=== PATIENT | female | born 1950 | race Caucasian/White ===

== ENCOUNTER 2023-01-31 21:53 | Inpatient (IN) | payer MEDICARE, OTHER ==
[2023-01-31] MEDS ORDERED: methylPREDNISolone SOD SUCCI 125 MG/2 ML VIAL IV STA (22:05)
[2023-01-31] MEDS ORDERED: IPRATROPIUM-ALBUTEROL 3 ML NEB INHALATION STA (22:05)
--- NOTE | 2023-01-31 22:51 | XR ---
EXAMINATION TYPE: XR chest 1V portable DATE OF EXAM: 01/31/2023 HISTORY: Shortness of breath. COMPARISON: None. TECHNIQUE: Single view of the chest is submitted. FINDINGS: Demonstrated are scattered senescent parenchymal change. Perihilar and basilar infiltrates. Correlate for pneumonia. The heart is stable. Hilar and mediastinal structures are within normal limits. Degenerative changes are seen of the dorsal spine. IMPRESSION: 1. Perihilar and basilar infiltrates. Correlate for pneumonia.
[2023-01-31 22:54] LABS: Albumin 3.6 g/dL (3.5-5.0); Calcium 9.5 mg/dL (8.4-10.2); Magnesium 1.7 mg/dL (1.6-2.3); Potassium 3.4 mmol/L (3.5-5.1); Total Bilirubin 0.6 mg/dL (0.2-1.3); Total Protein 6.2 g/dL (6.3-8.2)
[2023-01-31 22:56] LABS: Partial Thromboplastin Time 24.7 sec (22.0-30.0); Prothrombin Time 10.3 sec (9.0-12.0)
--- NOTE | 2023-01-31 23:28 | ED ---
General Adult HPI - General Chief complaint: Shortness of Breath Stated complaint: MELE Time Seen by Provider: 01/31/23 22:01 Source: patient, family, RN notes reviewed Mode of arrival: wheelchair Limitations: no limitations - History of Present Illness Initial comments: 72-year-old female presents emergency Department chief complaint of dyspnea. Patient states that she's been having increasing shortness breath over the last 4 days. Patient reports subjective fever states she has productive cough is concerned about possible pneumonia. Patient states she has underlying COPD. Patient's been having increasing wheezing on alleviated with her breathing treatments at home. Patient denies any sick contacts denies any nausea vomiting diarrhea constipation. - Related Data Allergies Allergy/AdvReac Type Severity Reaction Status Date / Time aspirin Allergy Unknown Verified 01/31/23 21:58 Iodinated Contrast Media Allergy Unknown Verified 01/31/23 21:58 shellfish derived [Shellfish] Allergy Unknown Verified 01/31/23 21:58 Sulfa (Sulfonamide Allergy Unknown Verified 01/31/23 21:58 Antibiotics) Review of Systems ROS Statement: Those systems with pertinent positive or pertinent negative responses have been documented in the HPI. ROS Other: All systems not noted in ROS Statement are negative. Past Medical History Past Medical History: Asthma, COPD Additional Past Medical History / Comment(s): 1 kidney Smoking Status: Never smoker Past Alcohol Use History: None Reported Past Drug Use History: None Reported General Exam General appearance: alert, in distress Head exam: Present: atraumatic, normocephalic, normal inspection Eye exam: Present: normal appearance, PERRL, EOMI. Absent: scleral icterus, conjunctival injection, periorbital swelling ENT exam: Present: normal exam, mucous membranes moist Neck exam: Present: normal inspection. Absent: tenderness, meningismus, lymphadenopathy Respiratory exam: Present: respiratory distress, wheezes, decreased breath sounds. Absent: normal lung sounds bilaterally, rales, rhonchi, stridor Cardiovascular Exam: Present: normal rhythm, tachycardia, normal heart sounds. Absent: systolic murmur, diastolic murmur, rubs, gallop, clicks Neurological exam: Present: alert, oriented X3 Course Vital Signs 01/31/23 01/31/23 01/31/23 21:55 22:12 22:21 Temperature 98.0 F Pulse Rate 119 H 112 H 111 H Respiratory 32 H Rate Blood Pressure 166/80 O2 Sat by Pulse 93 L Oximetry Fraction of Inspired Oxygen (FIO2) 01/31/23 01/31/23 01/31/23 22:22 22:37 22:38 Temperature Pulse Rate 111 H 121 H 113 H Respiratory 16 Rate Blood Pressure O2 Sat by Pulse 96 Oximetry Fraction of Inspired Oxygen (FIO2) 01/31/23 01/31/23 22:41 23:00 Temperature Pulse Rate 111 H Respiratory 16 Rate Blood Pressure 110/82 O2 Sat by Pulse 94 L Oximetry Fraction of 35 Inspired Oxygen (FIO2) EKG Findings - EKG Comments: EKG Findings:: EKG upon a 22:07 sinus tachycardia with short MS rate of 111 MS 116 QRS 97 QT/QTC 359/425 - EKG Results: EKG: interpreted by DAYAMI Medical Decision Making - Medical Decision Making Was pt. sent in by a medical professional or institution (, PA, PLASTIC PRINTER, urgent care, hospital, or prison...) When possible be specific @ -No Did you speak to anyone other than the patient for history (EMS, parent, family, police, friend...)? What history was obtained from this source @ -No Did you review nursing and triage notes (agree or disagree)? Why? @ -I reviewed and agree with nursing and triage notes Were old charts reviewed (outside hosp., previous admission, EMS record, old EKG, old radiological studies, urgent care reports/EKG's, prison records)? Report findings @ -No old charts were reviewed Differential Diagnosis (chest pain, altered mental status, abdominal pain women, abdominal pain men, vaginal bleeding, weakness, fever, dyspnea, syncope, headache, dizziness, GI bleed, back pain, seizure, CVA, palpatations, mental health, musculoskeletal)? @ -nDifferential Dyspnea: Coronary syndrome, arrhythmia, tamponade, asthma, COPD, pulmonary embolism, pneumonia, pneumothorax, pulmonary effusion, anaphylaxis, diabetic ketoacidosis, flailed chest, pulmonary contusion, diaphragmatic rupture, anemia, neuromuscular, this is not meant to be an all-inclusive list. EKG interpreted by me (3pts min.). @ -As above X-rays interpreted by me (1pt min.). @ -Chest x-ray shows evidence of bilateral pneumonia, COPD changes CT interpreted by me (1pt min.). @ -None done U/S interpreted by me (1pt. min.). @ -None done What testing was considered but not performed or refused? (CT, X-rays, U/S, labs)? Why? @ -None What meds were considered but not given or refused? Why? @ -None Did you discuss the management of the patient with other professionals (professionals i.e. , PA, PLASTIC PRINTER, lab, RT, psych nurse, rn social work, wig sales consultant, teacher, control officer manager, family caseworker)? Give summary @ -Admitting physician with consult to pulmonology Was smoking cessation discussed for >3mins.? @ -No Was critical care preformed (if so, how long)? @ -35 minutes of GERD care time were used initially evaluated patient, ordering labs, EKG and chest x-ray. Patient was placed on BiPAP, breathing treatments. Patient is found to have bilateral pneumonia started on antibiotics after blood cultures. Patient was admitted and case discussed with admitting physician charissa potter with consult to pulmonology Were there social determinants of health that impacted care today? How? (Homelessness, low income, unemployed, alcoholism, drug addiction, transportati on, low edu. Level, literacy, decrease access to med. care, half-way, rehab)? @ -No Was there de-escalation of care discussed even if they declined (Discuss DNR or withdrawal of care, Hospice)? DNR status @ -No What co-morbidities impacted this encounter? (DM, HTN, Smoking, COPD, CAD, Cancer, CVA, ARF, Chemo, Hep., AIDS, mental health diagnosis, sleep apnea, morbid obesity)? @ -COPD Was patient admitted / discharged? Hospital course, mention meds given and route, prescriptions, significant lab abnormalities, going to OR and other pertinent info. @ -Admitted patient was found to be acutely wrist or distress, patient has COPD exacerbation and bilateral pneumonia. Patient will be inpatient and IV antibiotics, steroids, pulmonary evaluation Undiagnosed new problem with uncertain prognosis? @ -No Drug Therapy requiring intensive monitoring for toxicity (Heparin, Nitro, Insulin, Cardizem)? @ -No Were any procedures done? @ -No Diagnosis/symptom? @ -COPD exacerbation, Acute, or Chronic, or Acute on Chronic? @ -Acute Uncomplicated (without systemic symptoms) or Complicated (systemic symptoms)? @ -Complicated Side effects of treatment? @ -No Exacerbation, Progression, or Severe Exacerbation? @ -Exacerbation Poses a threat to life or bodily function? How? (Chest pain, [place], [place], pneumonia, PE, COPD, DKA, ARF, appy, cholecystitis, CVA, Diverticulitis, Homicidal, Suicidal, threat to staff... and all critical care pts) @ -Yes patient is an acute surgical distress can lead to failure Diagnosis/symptom? @ -Bilateral pneumonia, acute respiratory distress Acute, or Chronic, or Acute on Chronic? @ -Acute Uncomplicated (without systemic symptoms) or Complicated (systemic symptoms)? @ -Calculated Side effects of treatment? @ -none Exacerbation, Progression, or Severe Exacerbation @ -no Poses a threat to life or bodily function? @ -Yes - Lab Data Result diagrams: 01/31/23 22:21 01/31/23 22:21 Lab Results 01/31/23 01/31/23 01/31/23 Range/Units 22:21 22:21 22:21 WBC 8.2 (3.8-10.6) k/uL RBC 4.19 (3.80-5.40) m/uL Hgb 12.5 (11.4-16.0) gm/dL Hct 36.6 (34.0-46.0) % MCV 87.4 (80.0-100.0) fL MCH 29.7 (25.0-35.0) pg MCHC 34.0 (31.0-37.0) g/dL RDW 14.3 (11.5-15.5) % Plt Count 244 (150-450) k/uL MPV 8.5 Neutrophils % 77 % Lymphocytes % 12 % Monocytes % 7 % Eosinophils % 2 % Basophils % 0 % Neutrophils # 6.3 (1.3-7.7) k/uL Lymphocytes # 1.0 (1.0-4.8) k/uL Monocytes # 0.6 (0-1.0) k/uL Eosinophils # 0.2 (0-0.7) k/uL Basophils # 0.0 (0-0.2) k/uL PT 10.3 (9.0-12.0) sec INR 1.0 (<1.2) APTT 24.7 (22.0-30.0) sec Sodium 137 (137-145) mmol/L Potassium 3.4 L (3.5-5.1) mmol/L Chloride 104 (98-107) mmol/L Carbon Dioxide 23 (22-30) mmol/L Anion Gap 10 mmol/L BUN 14 (7-17) mg/dL Creatinine 1.07 H (0.52-1.04) mg/dL Est GFR (CKD-EPI)AfAm 60 (>60 ml/min/1.73 sqM) Est GFR (CKD-EPI)NonAf 52 (>60 ml/min/1.73 sqM) Glucose 123 H (74-99) mg/dL Plasma Lactic Acid Glen (0.7-2.0) mmol/L Calcium 9.5 (8.4-10.2) mg/dL Magnesium 1.7 (1.6-2.3) mg/dL Total Bilirubin 0.6 (0.2-1.3) mg/dL AST 21 (14-36) U/L ALT 20 (4-34) U/L Alkaline Phosphatase 106 (38-126) U/L Troponin I (0.000-0.034) ng/mL Total Protein 6.2 L (6.3-8.2) g/dL Albumin 3.6 (3.5-5.0) g/dL Influenza Type A (PCR) (Not Detectd) Influenza Type B (PCR) (Not Detectd) RSV (PCR) (Not Detectd) SARS-CoV-2 (PCR) (Not Detectd) 01/31/23 01/31/23 01/31/23 Range/Units 22:21 22:21 22:28 WBC (3.8-10.6) k/uL RBC (3.80-5.40) m/uL Hgb (11.4-16.0) gm/dL Hct (34.0-46.0) % MCV (80.0-100.0) fL MCH (25.0-35.0) pg MCHC (31.0-37.0) g/dL RDW (11.5-15.5) % Plt Count (150-450) k/uL MPV Neutrophils % % Lymphocytes % % Monocytes % % Eosinophils % % Basophils % % Neutrophils # (1.3-7.7) k/uL Lymphocytes # (1.0-4.8) k/uL Monocytes # (0-1.0) k/uL Eosinophils # (0-0.7) k/uL Basophils # (0-0.2) k/uL PT (9.0-12.0) sec INR (<1.2) APTT (22.0-30.0) sec Sodium (137-145) mmol/L Potassium (3.5-5.1) mmol/L Chloride (98-107) mmol/L Carbon Dioxide (22-30) mmol/L Anion Gap mmol/L BUN (7-17) mg/dL Creatinine (0.52-1.04) mg/dL Est GFR (CKD-EPI)AfAm (>60 ml/min/1.73 sqM) Est GFR (CKD-EPI)NonAf (>60 ml/min/1.73 sqM) Glucose (74-99) mg/dL Plasma Lactic Acid Glen 2.0 (0.7-2.0) mmol/L Calcium (8.4-10.2) mg/dL Magnesium (1.6-2.3) mg/dL Total Bilirubin (0.2-1.3) mg/dL AST (14-36) U/L ALT (4-34) U/L Alkaline Phosphatase (38-126) U/L Troponin I <0.012 (0.000-0.034) ng/mL Total Protein (6.3-8.2) g/dL Albumin (3.5-5.0) g/dL Influenza Type A (PCR) Not Detected (Not Detectd) Influenza Type B (PCR) Not Detected (Not Detectd) RSV (PCR) Not Detected (Not Detectd) SARS-CoV-2 (PCR) Not Detected (Not Detectd) Disposition Clinical Impression: Pneumonia, COPD exacerbation, Acute respiratory distress Disposition: ADMITTED IP TO THIS [facility] Condition: Poor Referrals: Nonstaff,Physician [Primary Care Provider] - 1-2 days Time of Disposition: 00:10
[2023-01-31 23:53] LABS: Basophils % (A) 0 %; Eosinophils # (A) 0.2 k/uL (0-0.7); Eosinophils % (A) 2 %; HCT 36.6 % (34.0-46.0); HGB 12.5 gm/dL (11.4-16.0); Lymphocytes % (A) 12 %; MCH 29.7 pg (25.0-35.0); MCV 87.4 fL (80.0-100.0); Mean Platelet Volume 8.5; Monocytes # (A) 0.6 k/uL (0-1.0); Monocytes % (A) 7 %; Neutrophils # (A) 6.3 k/uL (1.3-7.7); Neutrophils % (A) 77 %; Platelet Count 244 k/uL (150-450); RBC 4.19 m/uL (3.80-5.40); RDW 14.3 % (11.5-15.5); WBC 8.2 k/uL (3.8-10.6)
[2023-02-01] MEDS ORDERED: PNEUMONIA PROTOCOL UTILIZED 1 EACH MISC PO PRN (00:03)
[2023-02-01] MEDS ORDERED: ACETAMINOPHEN TAB 325 MG TAB PO PRN (00:03)
[2023-02-01] MEDS ORDERED: AZITHROMYCIN 500 MG in SODIUM CHLORIDE 0.9% 250 ML IVPB STA ×2 (00:03→02:02)
[2023-02-01] MEDS: HYDROcodone/APAP 10-325MG 1 EACH TAB PO PRN ×2 (07:07→16:00)
[2023-02-01] MEDS: IPRATROPIUM-ALBUTEROL 3 ML NEB INHALATION SCH ×4 (08:42→21:09)
[2023-02-01] MEDS: MONTELUKAST 10 MG TAB PO SCH (09:24)
[2023-02-01] MEDS: CLOPIDOGREL 75 MG TAB PO SCH (09:24)
[2023-02-01] MEDS: LOSARTAN 50 MG TAB PO SCH (09:24)
[2023-02-01] MEDS: GABAPENTIN 300 MG CAP PO SCH ×3 (09:24→21:38)
[2023-02-01] MEDS: DULoxetine HCL 60 MG CAPSULE.DR PO SCH (09:24)
[2023-02-01] MEDS: predniSONE 20 MG TAB PO SCH (09:25)
[2023-02-01] MEDS ORDERED: FUROSEMIDE 10 MG/ML 4 ML VIAL IV STA (09:52)
--- NOTE | 2023-02-01 11:07 | P.CNPUL ---
History of Present Illness Consult date: 02/01/23 Requesting physician: Ivette Pichardo Reason for consult: dyspnea, cough, asthma, COPD, hypoxemia, pneumonia, abnormal CXR/CT Chief complaint: Shortness of breath, cough. History of present illness: Pulmonary consult dated 02/01/2023. 72-year-old female with history of chronic bronchial asthma, who typically uses Symbicort and Singulair at home, since the emergency room on January 31, complai ector of increasing shortness of breath, and cough, for 3 or 4 days prior to admission. In addition, she had an elevated temperature, and apparently was told in the emergency room, she was being admitted for an asthma exacerbation complicated by pneumonia. The patient sees a family doctor, and Tonie Rae. The patient is a lifelong nonsmoker. The patient has a history of asthma, and also has a history of having only one kidney. Currently, the patient's on 2 L of oxygen. She did use BiPAP last night, with settings of 10/5 and 40%. She's currently on Rocephin and Zithromax, along with bronchodilators and corticosteroids. White count 8.2, hemoglobin 12.5, hematocrit 36.6, and platelet count was normal. Coagulation studies are normal. Sodium 137, potassium 3.4, chlorides 104, CO2 23, BUN 14, and creatinine 1.07. N-terminal proBNP was 1350. Troponin was negative. Studies for influenza, RSV, and coronavirus were all negative. We did order a pro-calcitonin level which is not currently back. Chest x-ray appears to show some patchy bibasilar infiltrates. Review of Systems REVIEW OF SYSTEMS: CONSTITUTIONAL: Fever. NEUROLOGIC: [ Negative.] HEENT: [ Negative.] CARDIAC: [Negative.] PULMONARY: Shortness of breath, chest congestion, and cough. GI: [Negative.] : [Negative.] RHEUMATOLOGIC: [ Negative.] IMMUNOLOGIC: [ Negative.] ENDOCRINE: [Negative. ] DERMATOLOGIC: [Negative.] Past Medical History Past Medical History: Asthma, COPD, Osteoarthritis (OA), Rheumatoid Arthritis (RA) Additional Past Medical History / Comment(s): 1 [facility], [facility] told pt she has heart failure, Sinostenosis. History of Any Multi-Drug Resistant Organisms: MRSA Date of last positivie culture/infection: 2020 MDRO Source:: Nose Past Surgical History: Tonsillectomy, Tubal Ligation Additional Past Surgical History / Comment(s): Fatty tumor removed, bilat tubal ligation Past Anesthesia/Blood Transfusion Reactions: No Reported Reaction Smoking Status: Never smoker Past Alcohol Use History: None Reported Past Drug Use History: None Reported - Past Family History Mother Additional Family Medical History / Comment(s): from kidney cancer at young age Medications and Allergies Home Medications Medication Instructions Recorded Confirmed Type Budesonide/Formoterol Fumarate 2 puff INHALATION RT-BID 02/01/23 02/01/23 History [Symbicort 160-4.5 Mcg Inhaler] Clopidogrel [Plavix] 75 mg PO DAILY 02/01/23 02/01/23 History DULoxetine HCL [Cymbalta] 60 mg PO DAILY 02/01/23 02/01/23 History Gabapentin [Neurontin] 300 mg PO TID 02/01/23 02/01/23 History HYDROcodone/APAP 10-325MG [[place] 1 tab PO TID 02/01/23 02/01/23 History 10-325] Losartan Potassium [Cozaar] 50 mg PO DAILY 02/01/23 02/01/23 History Magnesium Oxide [Mag-Ox] 400 mg PO DAILY 02/01/23 02/01/23 History Montelukast Sodium [Singulair] 10 mg PO DAILY 02/01/23 02/01/23 History rOPINIRole HCL [Requip] 0.5 mg PO HS 02/01/23 02/01/23 History Allergies Allergy/AdvReac Type Severity Reaction Status Date / Time aspirin Allergy Unknown Verified 02/01/23 07:24 Iodinated Contrast Media Allergy Unknown Verified 02/01/23 07:24 shellfish derived [Shellfish] Allergy Unknown Verified 02/01/23 07:24 Sulfa (Sulfonamide Allergy Unknown Verified 02/01/23 07:24 Antibiotics) Physical Exam Osteopathic Statement: *. No significant issues noted on an osteopathic structural exam other than those noted in the History and Physical/Consult. Vitals: Vital Signs Temp Pulse Pulse Resp BP BP Pulse Ox 02/01/23 08:57 88 02/01/23 08:47 97 02/01/23 08:46 84 02/01/23 04:00 90 35 H 137/72 97 02/01/23 03:24 04/11/23 02:00 98 32 H 02/01/23 01:45 97.7 F 98 32 H 123/71 96 02/01/23 00:30 105 H 15 129/99 94 L 02/01/23 00:00 105 H 15 131/78 92 L 01/31/23 23:30 108 H 14 110/92 95 01/31/23 23:26 107 H 12 110/92 95 01/31/23 23:00 111 H 16 110/82 94 L 01/31/23 22:41 01/31/23 22:38 113 H 16 96 01/31/23 22:37 121 H 01/31/23 22:22 111 H 01/31/23 22:21 111 H 01/31/23 22:12 112 H 01/31/23 21:55 98.0 F 119 H 32 H 166/80 93 L FiO2 02/01/23 08:57 02/01/23 08:47 02/01/23 08:46 02/01/23 04:00 40 02/01/23 03:24 40 02/01/23 02:00 02/01/23 01:45 40 02/01/23 00:30 02/01/23 00:00 01/31/23 23:30 01/31/23 23:26 01/31/23 23:00 01/31/23 22:41 35 01/31/23 22:38 01/31/23 22:37 01/31/23 22:22 01/31/23 22:21 01/31/23 22:12 01/31/23 21:55 Intake and Output 01/31/23 02/01/23 02/01/23 22:59 06:59 14:59 Other: Voiding Method Diaper # Voids 0 Weight 72.121 kg 72.121 kg No acute distress, oriented 3. Currently on 3 L of oxygen. No conversational dyspnea or use of accessory muscles. HEENT examination is grossly unremarkable. Neck supple. Full range of motion. No adenopathy thyromegaly or neck vein distention. Cardiovascular examination reveals regular rhythm rate. S1-S2 normal. No S3 or S4. No discernible murmur noted. Heart rate is 88 bpm. Lungs reveal scattered bilateral inspiratory and expiratory wheezes and rhonchi. Breath sounds are coarse. No crackles. Breath sounds are equal bilaterally. Saturations are 97% on 4 L. Abdomen soft bowel sounds are heard. No masses or tenderness. Extremities are intact. No cyanosis clubbing or edema. Skin is without rash or lesion. Neurologic examination is brief but nonfocal. Results - Laboratory Findings CBC and BMP: 01/31/23 22:21 01/31/23 22:21 PT/INR, D-dimer PT 10.3 sec (9.0-12.0) 01/31/23 22: INR 1.0 (<1.2) 01/31/23 22:21 Abnormal lab findings: Abnormal Labs 01/31/23 22:21 Potassium 3.4 L Creatinine 1.07 H Glucose 123 H Total Protein 6.2 L - Diagnostic Findings Chest x-ray: image reviewed Assessment and Plan Assessment: Asthma exacerbation complicated by bibasilar pneumonia. History of hypertension. History of neuropathy. Lifelong nonsmoker. Plan: Plan dated 02/01/2023. The patient is currently on azithromycin and Rocephin. This is typical for community-acquired pneumonia. In addition, the patient was placed back on Symbicort 160/4.5, 2 puffs twice a day, and also is receiving albuterol sulfate and ipratropium bromide, 4 times a day and when necessary. The patient was also placed on prednisone 40 mg a day, Singulair 10 mg in the evening. We will continue to follow make recommendations along the way. We did order a pro-calc itonin level which is not currently back. Time with Patient: Greater than 30
[2023-02-01 11:37] VITALS: BMI 34.4
--- NOTE | 2023-02-01 12:28 | P.HPIM ---
History of Present Illness H&P Date: 02/01/23 Chief Complaint: Shortness of breath cough 72-year-old lady with past medical history significant for asthma, hypertension, peripheral neuropathy presented to the emergency department with complains of cough and shortness of breath Patient says she was having symptoms for the last 3 or 4 days and was noted to have fever, cough and productive phlegm Patient doesn't wear oxygen at home and was noted to be on 2 L at the time of presentation but had to be increased to 4 L Workup initiated in ER including a CBC, basic metabolic panel and troponin which was negative Patient tested negative for influenza RSV and coronavirus Chest x-ray showed patchy bibasilar infiltrate Continue patient on Rocephin and azithromycin pulmonary medicine consulted Review of Systems REVIEW OF SYSTEMS: Essentially negative except cough, fever, shortness of breath CONSTITUTIONAL:, no malaise, no fatigue. HEENT: No recent visual problems or hearing problems. Denied any sore throat. CARDIOVASCULAR: No chest pain, orthopnea, PND, no palpitations, no syncope. PULMONARY: Positive for cough and shortness of breath. GASTROINTESTINAL: No diarrhea, no nausea, no vomiting, no abdominal pain. NEUROLOGICAL: No headaches, no weakness, no numbness. HEMATOLOGICAL: Denies any bleeding or petechiae. GENITOURINARY: Denies any burning micturition, frequency, or urgency. MUSCULOSKELETAL/RHEUMATOLOGICAL: Denies any joint pain, swelling, or any muscle pain. ENDOCRINE: Denies any polyuria or polydipsia. Past Medical History Past Medical History: Asthma, COPD, Osteoarthritis (OA), Rheumatoid Arthritis (RA) Additional Past Medical History / Comment(s): 1 [facility] told pt she has heart failure, Sinostenosis. History of Any Multi-Drug Resistant Organisms: MRSA Date of last positivie culture/infection: 2020 MDRO Source:: Nose Past Surgical History: Tonsillectomy, Tubal Ligation Additional Past Surgical History / Comment(s): Fatty tumor removed, bilat tubal ligation Past Anesthesia/Blood Transfusion Reactions: No Reported Reaction Smoking Status: Never smoker Past Alcohol Use History: None Reported Past Drug Use History: None Reported - Past Family History Mother Additional Family Medical History / Comment(s): from kidney cancer at young age Medications and Allergies Home Medications Medication Instructions Recorded Confirmed Type Budesonide/Formoterol Fumarate 2 puff INHALATION RT-BID 04/11/23 04/11/23 History [Symbicort 160-4.5 Mcg Inhaler] Clopidogrel [Plavix] 75 mg PO DAILY 02/01/23 02/01/23 History DULoxetine HCL [Cymbalta] 60 mg PO DAILY 02/01/23 02/01/23 History Gabapentin [Neurontin] 300 mg PO TID 02/01/23 02/01/23 History HYDROcodone/APAP 10-325MG [[place] 1 tab PO TID 02/01/23 02/01/23 History 10-325] Losartan Potassium [Cozaar] 50 mg PO DAILY 02/01/23 02/01/23 History Magnesium Oxide [Mag-Ox] 400 mg PO DAILY 02/01/23 02/01/23 History Montelukast Sodium [Singulair] 10 mg PO DAILY 02/01/23 02/01/23 History rOPINIRole HCL [Requip] 0.5 mg PO HS 02/01/23 02/01/23 History Allergies Allergy/AdvReac Type Severity Reaction Status Date / Time aspirin Allergy Unknown Verified 02/01/23 07:24 Iodinated Contrast Media Allergy Unknown Verified 02/01/23 07:24 shellfish derived [Shellfish] Allergy Unknown Verified 02/01/23 07:24 Sulfa (Sulfonamide Allergy Unknown Verified 02/01/23 07:24 Antibiotics) Physical Exam Vitals: Vital Signs Temp Pulse Pulse Resp BP BP Pulse Ox 02/01/23 08:57 88 02/01/23 08:47 97 02/01/23 08:46 84 02/01/23 08:00 97.4 F L 87 24 121/58 97 02/01/23 04:00 90 35 H 137/72 97 02/01/23 03:24 02/01/23 02:00 98 32 H 02/01/23 01:45 97.7 F 98 32 H 123/71 96 02/01/23 00:30 105 H 15 129/99 94 L 02/01/23 00:00 105 H 15 131/78 92 L 01/31/23 23:30 108 H 14 110/92 95 01/31/23 23:26 107 H 12 110/92 95 01/31/23 23:00 111 H 16 110/82 94 L 01/31/23 22:41 01/31/23 22:38 113 H 16 96 01/31/23 22:37 121 H 01/31/23 22:22 111 H 01/31/23 22:21 111 H 01/31/23 22:12 112 H 01/31/23 21:55 98.0 F 119 H 32 H 166/80 93 L FiO2 02/01/23 08:57 02/01/23 08:47 02/01/23 08:46 02/01/23 08:00 02/01/23 04:00 40 02/01/23 03:24 40 02/01/23 02:00 02/01/23 01:45 40 02/01/23 00:30 02/01/23 00:00 01/31/23 23:30 01/31/23 23:26 01/31/23 23:00 01/31/23 22:41 35 01/31/23 22:38 01/31/23 22:37 01/31/23 22:22 01/31/23 22:21 01/31/23 22:12 01/31/23 21:55 Intake and Output 01/31/23 02/01/23 02/01/23 22:59 06:59 14:59 Other: Voiding Method Diaper Diaper # Voids 0 Weight 72.121 kg 72.121 kg 72.121 kg Results CBC & Chem 7: 01/31/23 22:21 01/31/23 22:21 Labs: Abnormal Lab Results - Last 24 Hours (Table) 01/31/23 Range/Units 22:21 Potassium 3.4 L (3.5-5.1) mmol/L Creatinine 1.07 H (0.52-1.04) mg/dL Glucose 123 H (74-99) mg/dL Total Protein 6.2 L (6.3-8.2) g/dL Thrombosis Risk Factor Assmnt - Choose All That Apply Any of the Below Risk Factors Present?: Yes Each Factor Represents 1 point: Abnormal pulmonary function (COPD), Obesity (BMI >25), Serious lung disease incl. pneumonia (< 1month) Other Risk Factors: Yes Each Risk Factor Represents 2 Points: Age 61-74 years, Patient confined to bed Other congenital or acquired thrombophilia - If yes, enter type in comment: No Thrombosis Risk Factor Assessment Total Risk Factor Score: 7 Thrombosis Risk Factor Assessment Level: High Risk Assessment and Plan Assessment: Assessment and plan * Community-acquired pneumonia * Acute hypoxic respiratory failure * Acute exacerbation of asthma * Hypertension * history of depression * For pneumonia continue patient on Rocephin and azithromycin, patient is a negative for covert, RSV and influenza, * Continue patient on prednisone, continue breathing treatments on Symbicort, continue Synthroid * For hypertension continue losartan * For asthma exacerbation on prednisone, breathing treatments as needed pulmonary medicine follow * CODE STATUS is full code Time with Patient: Greater than 30
[2023-02-01] MEDS: SYMBICORT 160-4.5 MCG INHALER INHALATION SCH (21:09)
[2023-02-01] MEDS: HEPARIN SODIUM,PORCINE/PF 5,000 UNIT/0.5 ML SYRINGE SQ SCH (21:38)
[2023-02-02] MEDS ORDERED: IPRATROPIUM-ALBUTEROL 3 ML NEB INHALATION STA (04:56)
[2023-02-02] MEDS: HYDROcodone/APAP 10-325MG 1 EACH TAB PO PRN ×3 (04:58→20:56)
--- NOTE | 2023-02-02 08:08 | XR ---
EXAMINATION TYPE: XR chest 2V DATE OF EXAM: 02/02/2023 6:21 AM COMPARISON: Chest radiograph from one day prior. TECHNIQUE: XR chest 2V Frontal and lateral views of the chest. CLINICAL INDICATION:Female, 72 years old with history of pneumonia; FINDINGS: Lungs/Pleura: Similar multifocal airspace opacities. No evidence of pneumothorax or pleural effusion. Pulmonary vascularity: Unremarkable. Heart/mediastinum: Cardiomediastinal silhouette is unremarkable. Musculoskeletal: No acute osseous pathology. IMPRESSION: Bibasilar airspace opacities are not significantly changed from prior.
[2023-02-02] MEDS: IPRATROPIUM-ALBUTEROL 3 ML NEB INHALATION SCH ×4 (08:34→21:41)
[2023-02-02] MEDS: SYMBICORT 160-4.5 MCG INHALER INHALATION SCH (08:34)
[2023-02-02] MEDS: CLOPIDOGREL 75 MG TAB PO SCH (09:06)
[2023-02-02] MEDS: AZITHROMYCIN 500 MG TAB PO SCH (09:06)
[2023-02-02] MEDS: GABAPENTIN 300 MG CAP PO SCH ×3 (09:06→20:56)
[2023-02-02] MEDS: MONTELUKAST 10 MG TAB PO SCH (09:06)
[2023-02-02] MEDS: predniSONE 20 MG TAB PO SCH (09:06)
[2023-02-02] MEDS: DULoxetine HCL 60 MG CAPSULE.DR PO SCH (09:06)
[2023-02-02] MEDS: LOSARTAN 50 MG TAB PO SCH (09:06)
[2023-02-02] MEDS: HEPARIN SODIUM,PORCINE/PF 5,000 UNIT/0.5 ML SYRINGE SQ SCH ×2 (09:07→20:57)
--- NOTE | 2023-02-02 11:05 | P.PN ---
Subjective Progress Note Date: 02/02/23 Principal diagnosis: Shortness of breath. Pulmonary consult dated 02/01/2023. 72-year-old female with history of chronic bronchial asthma, who typically uses Symbicort and Singulair at home, since the emergency room on January 31, complaining of increasing shortness of breath, and cough, for 3 or 4 days prior to admission. In addition, she had an elevated temperature, and apparently was told in the emergency room, she was being admitted for an asthma exacerbation complicated by pneumonia. The patient sees a family doctor, and Tonie Rae. The patient is a lifelong nonsmoker. The patient has a history of asthma, and also has a history of having only one kidney. Currently, the patient's on 2 L of oxygen. She did use BiPAP last night, with settings of 10/5 and 40%. She's currently on Rocephin and Zithromax, along with bronchodilators and corticosteroids. White count 8.2, hemoglobin 12.5, hematocrit 36.6, and platelet count was normal. Coagulation studies are normal. Sodium 137, potassium 3.4, chlorides 104, CO2 23, BUN 14, and creatinine 1.07. N-terminal proBNP was 1350. Troponin was negative. Studies for influenza, RSV, and coronavirus were all negative. We did order a pro-calcitonin level which is not currently back. Chest x-ray appears to show some patchy bibasilar infiltrates. Progress note dated 02/02/2023. 72-year-old female seen in consultation yesterday. Please see my note. She has a history of asthma, came to the hospital with complaints of increasing shortness of breath, for about 3 or 4 days prior to admission. She also had fever, and was found to have pneumonia on chest x-ray. The patient is currently on 3 L. She's not receiving any IV fluids. The patient's prednisone will be converted to Solu-Medrol. In addition, the patient's Symbicort will be changed to budesonide, and formoterol, at usual doses. The patient states that she's feeling only minimally better since admission. No new labs today. Sputum and blood sampling has been negative as far. Chest x-ray continues to show a similar pattern of pneumonia, with bibasilar infiltrates. Objective - Vital Signs Vital signs: Vital Signs Temp 96.9 F L 02/02/23 09:02 Pulse 96 02/02/23 09:02 Resp 20 02/02/23 09:02 BP 122/66 02/02/23 09:02 Pulse Ox 96 02/02/23 09:02 FiO2 40 02/01/23 04:00 Intake & Output 02/01/23 02/02/23 02/02/23 18:59 06:59 18:59 Intake Total 118 Output Total 500 650 200 Balance -500 -650 -82 Weight 72.121 kg 73 kg Intake: Oral 118 Output: Urine 500 650 200 Stool 0 Other: Voiding Method Diaper External Catheter External Catheter # Voids 1 - Exam No acute distress, oriented 3. Currently on 3 L of oxygen. No conversational dyspnea or use of accessory muscles. HEENT examination is grossly unremarkable. Neck supple. Full range of motion. No adenopathy thyromegaly or neck vein distention. Cardiovascular examination reveals regular rhythm rate. S1-S2 normal. No S3 or S4. No discernible murmur noted. Heart rate is 96 bpm. Lungs reveal scattered bilateral inspiratory and expiratory wheezes and rhonchi. Breath sounds are coarse. No crackles. Breath sounds are equal bilaterally. Saturations are 96 % on 3 L. Abdomen soft bowel sounds are heard. No masses or tenderness. Extremities are intact. No cyanosis clubbing or edema. Skin is without rash or lesion. Neurologic examination is brief but nonfocal. - Labs CBC & Chem 7: 01/31/23 22:21 01/31/23 22:21 Labs: Abnormal Lab Results - Last 24 Hours (Table) 02/01/23 Range/Units 10:28 Procalcitonin 1.17 H (0.02-0.09) ng/mL Microbiology - Last 24 Hours (Table) 02/01/23 21:15 Gram Stain - Preliminary Sputum Sputum Culture - Preliminary 02/01/23 00:58 Blood Culture - Preliminary Blood No Growth after 24 hours 02/01/23 00:58 Blood Culture - Preliminary Blood No Growth after 24 hours Assessment and Plan Assessment: Asthma exacerbation complicated by bibasilar pneumonia. History of hypertension. History of neuropathy. Lifelong nonsmoker. Plan: Plan dated 02/01/2023. The patient is currently on azithromycin and Rocephin. This is typical for community-acquired pneumonia. In addition, the patient was placed back on Symbicort 160/4.5, 2 puffs twice a day, and also is receiving albuterol sulfate and ipratropium bromide, 4 times a day and when necessary. The patient was also placed on prednisone 40 mg a day, Singulair 10 mg in the evening. We will continue to follow make recommendations along the way. We did order a pro- calcitonin level which is not currently back. Plan dated 02/02/2023. The patient remains on 3 L of oxygen. She's not receiving any IV fluids. In an attempt to improve her situation more quickly, the prednisone is discontinued, in favor of Solu-Medrol. In addition, Symbicort is discontinued in favor of budesonide 1 mg, mixed with formoterol 20 g, twice a day. Continue to follow make recommendations along the way. Labs, x-rays, medications are reviewed. Prognosis is certainly guarded. Time with Patient: Less than 30
[2023-02-02 12:03] LABS: African American GFR (CKD) >90 (>60 ml/min/1.73 sqM); Anion Gap 10 mmol/L; Blood Urea Nitrogen 20 mg/dL (7-17); Calcium 8.9 mg/dL (8.4-10.2); Carbon Dioxide 26 mmol/L (22-30); Chloride 103 mmol/L (98-107); Glucose 115 mg/dL (74-99); Non-African American GFR(CKD) 80 (>60 ml/min/1.73 sqM); Potassium 3.5 mmol/L (3.5-5.1); Sodium 139 mmol/L (137-145)
[2023-02-02 12:17] LABS: C Reactive Protein 19.8 mg/dL (<1.0)
--- NOTE | 2023-02-02 12:41 | P.PN ---
Subjective Progress Note Date: 02/02/23 Principal diagnosis: Shortness of breath, cough Interval history: 72-year-old lady with past medical history significant for asthma, hypertension, peripheral neuropathy presented to the emergency department with complains of cough and shortness of breath Patient says she was having symptoms for the last 3 or 4 days and was noted to have fever, cough and productive phlegmPatient doesn't wear oxygen at home and was noted to be on 2 L at the time of presentation but had to be increased to 4 L Workup initiated in ER including a CBC, basic metabolic panel and troponin which was negative Patient tested negative for influenza RSV and coronavirusChest x-ray showed patchy bibasilar infiltrate. Pulmonary medicine consulted SUBJECTIVE : Patient seen and evaluated bedside, does complain of cough, congestion, sputum production REVIEW OF SYSTEMS: Essentially negative except cough, fever, shortness of breath improved CONSTITUTIONAL:, no malaise, no fatigue. HEENT: No recent visual problems or hearing problems. Denied any sore throat. CARDIOVASCULAR: No chest pain, orthopnea, PND, no palpitations, no syncope. PULMONARY: Positive for cough and shortness of breath. GASTROINTESTINAL: No diarrhea, no nausea, no vomiting, no abdominal pain. NEUROLOGICAL: No headaches, no weakness, no numbness. HEMATOLOGICAL: Denies any bleeding or petechiae. GENITOURINARY: Denies any burning micturition, frequency, or urgency. MUSCULOSKELETAL/RHEUMATOLOGICAL: Denies any joint pain, swelling, or any muscle pain. ENDOCRINE: Denies any polyuria or polydipsia. PHYSICAL EXAMINATION: Vitals reviewed GENERAL: The patient is alert and oriented x3, not in any acute distress. Well developed, well nourished. HEENT: Pupils are round and equally reacting to light. EOMI. No scleral icterus. No conjunctival pallor. Normocephalic, atraumatic. No pharyngeal erythema. No thyromegaly. CARDIOVASCULAR: S1 and S2 present. No murmurs, rubs, or gallops. PULMONARY: Chest is clear to auscultation, no wheezing or crackles. ABDOMEN: Soft, nontender, nondistended, normoactive bowel sounds. No palpable organomegaly. MUSCULOSKELETAL: No joint swelling or deformity. EXTREMITIES: No cyanosis, clubbing, or pedal edema. NEUROLOGICAL: Gross neurological examination did not reveal any focal deficits. SKIN: No rashes. ASSESMENT & PLAN * Community-acquired pneumonia * Acute hypoxic respiratory failure on 3 L of oxygen , none at baseline * Acute exacerbation of asthma * Hypertension * history of depression * For pneumonia continue patient on Rocephin and azithromycin, patient is a negative for Covid , RSV and influenza, * Continue patient on IV Solu-Medrol, continue breathing treatments on Symbicort, continue Synthroid * For hypertension continue losartan * For asthma exacerbation on IV Solumedrol , breathing treatments as needed pulmonary medicine follow * CODE STATUS is full code Objective - Vital Signs Vital signs: Vital Signs Temp 97.3 F L 02/02/23 12:00 Pulse 85 02/02/23 12:30 Resp 15 02/02/23 12:30 BP 129/75 02/02/23 12:00 Pulse Ox 93 L 02/02/23 12:00 FiO2 40 02/01/23 04:00 Intake & Output 02/01/23 02/02/23 02/02/23 18:59 06:59 18:59 Intake Total 118 Output Total 500 650 200 Balance -500 -650 -82 Weight 72.121 kg 73 kg Intake: Oral 118 Output: Urine 500 650 200 Stool 0 Other: Voiding Method Diaper External Catheter External Catheter # Voids 1 - Labs CBC & Chem 7: 01/31/23 22:21 02/02/23 11:03 Labs: Abnormal Lab Results - Last 24 Hours (Table) 02/01/23 02/02/23 Range/Units 10:28 11:03 BUN 20 H (7-17) mg/dL Glucose 115 H (74-99) mg/dL C-Reactive Protein 19.8 H (<1.0) mg/dL Procalcitonin 1.17 H (0.02-0.09) ng/mL Microbiology - Last 24 Hours (Table) 02/01/23 21:15 Gram Stain - Preliminary Sputum Sputum Culture - Preliminary 02/01/23 00:58 Blood Culture - Preliminary Blood No Growth after 24 hours 02/01/23 00:58 Blood Culture - Preliminary Blood No Growth after 24 hours
[2023-02-02] MEDS: methylPREDNISolone SOD SUCCI 125 MG/2 ML VIAL IV SCH ×3 (13:04→23:31)
[2023-02-02] MEDS: guaiFENesin 600 MG TABLET.ER PO SCH ×2 (13:04→20:56)
[2023-02-02] MEDS ORDERED: bisacodyL 5 MG TABLET.DR PO PRN (18:55)
[2023-02-02] MEDS: FORMOTEROL FUMARATE 20 MCG/2 ML NEBU INHALATION SCH (21:41)
[2023-02-02] MEDS: BUDESONIDE 1 MG/2 ML NEBU INHALATION SCH (21:41)
[2023-02-03] MEDS: HYDROcodone/APAP 10-325MG 1 EACH TAB PO PRN ×3 (04:56→20:42)
[2023-02-03] MEDS: methylPREDNISolone SOD SUCCI 125 MG/2 ML VIAL IV SCH ×4 (04:57→22:56)
[2023-02-03] MEDS: AZITHROMYCIN 500 MG TAB PO SCH (08:24)
[2023-02-03] MEDS: CLOPIDOGREL 75 MG TAB PO SCH (08:24)
[2023-02-03] MEDS: HEPARIN SODIUM,PORCINE/PF 5,000 UNIT/0.5 ML SYRINGE SQ SCH ×2 (08:25→20:43)
[2023-02-03] MEDS: GABAPENTIN 300 MG CAP PO SCH ×3 (08:25→22:05)
[2023-02-03] MEDS: LOSARTAN 50 MG TAB PO SCH (08:25)
[2023-02-03] MEDS: MONTELUKAST 10 MG TAB PO SCH (08:25)
[2023-02-03] MEDS: guaiFENesin 600 MG TABLET.ER PO SCH ×2 (08:25→20:42)
[2023-02-03] MEDS: DULoxetine HCL 60 MG CAPSULE.DR PO SCH (08:25)
[2023-02-03] MEDS: FORMOTEROL FUMARATE 20 MCG/2 ML NEBU INHALATION SCH ×2 (09:56→22:11)
[2023-02-03] MEDS: IPRATROPIUM-ALBUTEROL 3 ML NEB INHALATION SCH ×4 (09:56→22:11)
[2023-02-03] MEDS: BUDESONIDE 1 MG/2 ML NEBU INHALATION SCH ×2 (09:56→22:11)
--- NOTE | 2023-02-03 10:08 | P.PN ---
Subjective Progress Note Date: 02/03/23 Principal diagnosis: Shortness of breath. Pulmonary consult dated 02/01/2023. 72-year-old female with history of chronic bronchial asthma, who typically uses Symbicort and Singulair at home, since the emergency room on January 31, complaining of increasing shortness of breath, and cough, for 3 or 4 days prior to admission. In addition, she had an elevated temperature, and apparently was told in the emergency room, she was being admitted for an asthma exacerbation complicated by pneumonia. The patient sees a family doctor, and Tonie Rae. The patient is a lifelong nonsmoker. The patient has a history of asthma, and also has a history of having only one kidney. Currently, the patient's on 2 L of oxygen. She did use BiPAP last night, with settings of 10/5 and 40%. She's currently on Rocephin and Zithromax, along with bronchodilators and corticosteroids. White count 8.2, hemoglobin 12.5, hematocrit 36.6, and platelet count was normal. Coagulation studies are normal. Sodium 137, potassium 3.4, chlorides 104, CO2 23, BUN 14, and creatinine 1.07. N-terminal proBNP was 1350. Troponin was negative. Studies for influenza, RSV, and coronavirus were all negative. We did order a pro-calcitonin level which is not currently back. Chest x-ray appears to show some patchy bibasilar infiltrates. Progress note dated 02/02/2023. 72-year-old female seen in consultation yesterday. Please see my note. She has a history of asthma, came to the hospital with complaints of increasing shortness of breath, for about 3 or 4 days prior to admission. She also had fever, and was found to have pneumonia on chest x-ray. The patient is currently on 3 L. She's not receiving any IV fluids. The patient's prednisone will be converted to Solu-Medrol. In addition, the patient's Symbicort will be changed to budesonide, and formoterol, at usual doses. The patient states that she's feeling only minimally better since admission. No new labs today. Sputum and blood sampling has been negative as far. Chest x-ray continues to show a similar pattern of pneumonia, with bibasilar infiltrates. Progress note dated 02/03/2023. 72-year-old female seen today in room 362. Currently, the patient's on 3 L of oxygen. She's not receiving any IV fluids. She appears to be doing better, and admits that she's feeling better. No new laboratory data to report. Chest x- ray from yesterday, was ready reviewed. The patient continues on the Pulmicort, Rocephin, formoterol, Mucinex, albuterol sulfate, and ipratropium bromide, and Solu-Medrol. Objective - Vital Signs Vital signs: Vital Signs Temp 97.4 F L 02/03/23 07:12 Pulse 92 02/03/23 09:56 Resp 18 02/03/23 09:54 BP 135/73 02/03/23 07:12 Pulse Ox 94 L 02/03/23 07:12 FiO2 40 02/01/23 04:00 Intake & Output 02/02/23 02/03/23 02/03/23 18:59 06:59 18:59 Intake Total 354 120 Output Total 300 400 Balance 54 -400 120 Weight 76.5 kg Intake: Oral 354 120 Output: Urine 300 400 Stool 0 Other: Voiding Method External Catheter External Catheter # Bowel Movements 0 - Exam No acute distress, oriented 3. Currently on 3 L of oxygen. No conversational dyspnea or use of accessory muscles. HEENT examination is grossly unremarkable. Neck supple. Full range of motion. No adenopathy thyromegaly or neck vein distention. Cardiovascular examination reveals regular rhythm rate. S1-S2 normal. No S3 or S4. No discernible murmur noted. Heart rate is 92 bpm. Lungs reveal scattered bilateral inspiratory and expiratory wheezes and rhonchi. Breath sounds are coarse. No crackles. Breath sounds are equal bilaterally. Saturations are 94 % on 3 L. Breath sounds are improved. Abdomen soft bowel sounds are heard. No masses or tenderness. Extremities are intact. No cyanosis clubbing or edema. Skin is without rash or lesion. Neurologic examination is brief but nonfocal. - Labs CBC & Chem 7: 01/31/23 22:21 02/02/23 11:03 Labs: Abnormal Lab Results - Last 24 Hours (Table) 02/02/23 Range/Units 11:03 BUN 20 H (7-17) mg/dL Glucose 115 H (74-99) mg/dL C-Reactive Protein 19.8 H (<1.0) mg/dL Microbiology - Last 24 Hours (Table) 02/01/23 00:58 Blood Culture - Preliminary Blood No Growth after 48 hours 02/01/23 00:58 Blood Culture - Preliminary Blood No Growth after 48 hours 02/01/23 21:15 Gram Stain - Preliminary Sputum Sputum Culture - Preliminary Assessment and Plan Assessment: Asthma exacerbation complicated by bibasilar pneumonia. History of hypertension. History of neuropathy. Lifelong nonsmoker. Plan: Plan dated 02/01/2023. The patient is currently on azithromycin and Rocephin. This is typical for community-acquired pneumonia. In addition, the patient was placed back on Symbicort 160/4.5, 2 puffs twice a day, and also is receiving albuterol sulfate and ipratropium bromide, 4 times a day and when necessary. The patient was also placed on prednisone 40 mg a day, Singulair 10 mg in the evening. We will continue to follow make recommendations along the way. We did order a pro- calcitonin level which is not currently back. Plan dated 02/02/2023. The patient remains on 3 L of oxygen. She's not receiving any IV fluids. In an attempt to improve her situation more quickly, the prednisone is discontinued, in favor of Solu-Medrol. In addition, Symbicort is discontinued in favor of budesonide 1 mg, mixed with formoterol 20 g, twice a day. Continue to follow make recommendations along the way. Labs, x-rays, medications are reviewed. Prognosis is certainly guarded. Plan dated 02/03/2023. The patient remains on 3 L. The patient is not receiving any IV fluids. Clinically, the patient appears to be improved. She states that she's feeling better. Hopeful discharge within the next 24-48 hours. We will continue to follow the patient and make additions along the way. Labs, x-rays, and medications are all reviewed. Prognosis is guarded. Time with Patient: Less than 30
[2023-02-03 11:34] LABS: HCT 36.8 % (34.0-46.0); HGB 11.5 gm/dL (11.4-16.0); MCH 28.5 pg (25.0-35.0); MCHC 31.2 g/dL (31.0-37.0); MCV 91.2 fL (80.0-100.0); Mean Platelet Volume 7.7; Platelet Count 367 k/uL (150-450); Poikilocytosis Slight; RBC 4.03 m/uL (3.80-5.40); RDW 13.9 % (11.5-15.5); WBC 11.3 k/uL (3.8-10.6)
[2023-02-03 11:51] LABS: African American GFR (CKD) >90 (>60 ml/min/1.73 sqM); Anion Gap 8 mmol/L; Blood Urea Nitrogen 24 mg/dL (7-17); C Reactive Protein 7.7 mg/dL (<1.0); Calcium 9.3 mg/dL (8.4-10.2); Carbon Dioxide 25 mmol/L (22-30); Chloride 103 mmol/L (98-107); Glucose 132 mg/dL (74-99); Non-African American GFR(CKD) 87 (>60 ml/min/1.73 sqM); Potassium 4.3 mmol/L (3.5-5.1); Sodium 136 mmol/L (137-145)
[2023-02-03] MEDS ORDERED: DEXTROSE 50% SYRINGE 50 ML IVP PRN ×2 (12:11)
[2023-02-03 12:14] LABS: Glucose,Whole Blood 107 mg/dL (70-110)
--- NOTE | 2023-02-03 13:10 | P.PN ---
Subjective Progress Note Date: 02/03/23 72-year-old lady with past medical history significant for asthma, hypertension, peripheral neuropathy presented to the emergency department with complains of cough and shortness of breath Patient says she was having symptoms for the last 3 or 4 days and was noted to have fever, cough and productive phlegmPatient doesn't wear oxygen at home and was noted to be on 2 L at the time of presentation but had to be increased to 4 L Workup initiated in ER including a CBC, basic metabolic panel and troponin whi ch was negative Patient tested negative for influenza RSV and coronavirusChest x-ray showed patchy bibasilar infiltrate. Pulmonary medicine consulted 02/03. Patient seen and examined. Currently on 3 L of oxygen. States she feels better, still coughing up phlegm REVIEW OF SYSTEMS: CONSTITUTIONAL: No fever, no malaise,. CARDIOVASCULAR: No chest pain, no palpitations, no syncope. PULMONARY: As mentioned in HPI GASTROINTESTINAL: No diarrhea, no nausea, no vomiting, no abdominal pain. NEUROLOGICAL: No headaches, no weakness, PHYSICAL EXAMINATION: GENERAL: The patient is alert and oriented x3, not in any acute distress. Well developed, well nourished. HEENT: Pupils are round and equally reacting to light. EOMI. No scleral icterus. No conjunctival pallor. Normocephalic, atraumatic. No pharyngeal erythema. No thyromegaly. CARDIOVASCULAR: S1 and S2 present. No murmurs, rubs, or gallops. PULMONARY: Chest is clear to auscultation, no wheezing or crackles. ABDOMEN: Soft, nontender, nondistended, normoactive bowel sounds. No palpable organomegaly. MUSCULOSKELETAL: No joint swelling or deformity. EXTREMITIES: No cyanosis, clubbing, or pedal edema. NEUROLOGICAL: Gross neurological examination did not reveal any focal deficits. SKIN: No rashes. Assessment and plan * Bacterial pneumonia * Acute hypoxic respiratory failure on 3 L of oxygen , none at baseline * Acute exacerbation of asthma * Hypertension * history of depression Plan; * Monitor vital signs * Monitor CBC * Monitor CMP * Continue telemetry monitoring * Continue Rocephin and azithromycin, patient is a negative for Covid , RSV and influenza, * Continue patient on IV Solu-Medrol, * continue breathing treatments on Symbicort, * continue Synthroid * continue losartan * Pulmonology following Objective - Vital Signs Vital signs: Vital Signs Temp 97.4 F L 02/03/23 07:12 Pulse 90 02/03/23 07:12 Resp 16 02/03/23 07:12 BP 135/73 02/03/23 07:12 Pulse Ox 94 L 02/03/23 07:12 FiO2 40 02/01/23 04:00 Intake & Output 02/02/23 02/03/23 02/03/23 18:59 06:59 18:59 Intake Total 354 120 Output Total 300 400 Balance 54 -400 120 Weight 76.5 kg Intake: Oral 354 120 Output: Urine 300 400 Stool 0 Other: Voiding Method External Catheter External Catheter # Bowel Movements 0 - Labs CBC & Chem 7: 02/03/23 10:43 02/03/23 10:43 Labs: Abnormal Lab Results - Last 24 Hours (Table) 02/02/23 Range/Units 11:03 BUN 20 H (7-17) mg/dL Glucose 115 H (74-99) mg/dL C-Reactive Protein 19.8 H (<1.0) mg/dL Microbiology - Last 24 Hours (Table) 02/01/23 00:58 Blood Culture - Preliminary Blood No Growth after 48 hours 02/01/23 00:58 Blood Culture - Preliminary Blood No Growth after 48 hours 02/01/23 21:15 Gram Stain - Preliminary Sputum Sputum Culture - Preliminary
[2023-02-03] MEDS: INSULIN ASPART (NovoLOG) 100 UNIT/ML VIAL SQ SCH ×3 (13:17→20:43)
[2023-02-03 16:52] LABS: Glucose,Whole Blood 226 mg/dL (70-110)
[2023-02-03 19:54] LABS: Glucose,Whole Blood 178 mg/dL (70-110)
[2023-02-03] MEDS ORDERED: MELATONIN 3 MG TABLET PO PRN (20:23)
[2023-02-04] MEDS: methylPREDNISolone SOD SUCCI 125 MG/2 ML VIAL IV SCH ×2 (05:54→11:42)
[2023-02-04] MEDS: HYDROcodone/APAP 10-325MG 1 EACH TAB PO PRN (05:54)
[2023-02-04 06:13] LABS: Glucose,Whole Blood 125 mg/dL (70-110)
[2023-02-04] MEDS: INSULIN ASPART (NovoLOG) 100 UNIT/ML VIAL SQ SCH ×2 (06:20→11:42)
[2023-02-04] MEDS: MONTELUKAST 10 MG TAB PO SCH (08:17)
[2023-02-04] MEDS: CLOPIDOGREL 75 MG TAB PO SCH (08:17)
[2023-02-04] MEDS: guaiFENesin 600 MG TABLET.ER PO SCH (08:17)
[2023-02-04] MEDS: DULoxetine HCL 60 MG CAPSULE.DR PO SCH (08:17)
[2023-02-04] MEDS: LOSARTAN 50 MG TAB PO SCH (08:17)
[2023-02-04] MEDS: GABAPENTIN 300 MG CAP PO SCH (08:17)
[2023-02-04] MEDS: HEPARIN SODIUM,PORCINE/PF 5,000 UNIT/0.5 ML SYRINGE SQ SCH (08:17)
[2023-02-04 08:30] LABS: Basophils # (A) 0.1 k/uL (0-0.2); Basophils % (A) 1 %; Eosinophils % (A) 0 %; HCT 36.9 % (34.0-46.0); HGB 11.6 gm/dL (11.4-16.0); Lymphocytes # (A) 1.4 k/uL (1.0-4.8); Lymphocytes % (A) 13 %; MCH 28.8 pg (25.0-35.0); MCHC 31.5 g/dL (31.0-37.0); MCV 91.3 fL (80.0-100.0); Mean Platelet Volume 7.2; Monocytes # (A) 0.4 k/uL (0-1.0); Monocytes % (A) 4 %; Neutrophils # (A) 9.3 k/uL (1.3-7.7); Neutrophils % (A) 82 %; Platelet Count 376 k/uL (150-450); RBC 4.04 m/uL (3.80-5.40); RDW 13.7 % (11.5-15.5); WBC 11.3 k/uL (3.8-10.6)
[2023-02-04 08:56] LABS: AST 28 U/L (14-36); African American GFR (CKD) >90 (>60 ml/min/1.73 sqM); Albumin 3.4 g/dL (3.5-5.0); Anion Gap 9 mmol/L; Blood Urea Nitrogen 25 mg/dL (7-17); Calcium 8.8 mg/dL (8.4-10.2); Carbon Dioxide 24 mmol/L (22-30); Chloride 102 mmol/L (98-107); Glucose 173 mg/dL (74-99); Non-African American GFR(CKD) 86 (>60 ml/min/1.73 sqM); Sodium 135 mmol/L (137-145); Total Bilirubin 0.3 mg/dL (0.2-1.3)
[2023-02-04 09:01] LABS: ALT 31 U/L (4-34); Alkaline Phosphatase 92 U/L (38-126); Potassium 4.2 mmol/L (3.5-5.1)
[2023-02-04] MEDS: BUDESONIDE 1 MG/2 ML NEBU INHALATION SCH (09:34)
[2023-02-04] MEDS: FORMOTEROL FUMARATE 20 MCG/2 ML NEBU INHALATION SCH (09:34)
[2023-02-04] MEDS: IPRATROPIUM-ALBUTEROL 3 ML NEB INHALATION SCH ×2 (09:34→12:35)
[2023-02-04 11:39] LABS: Glucose,Whole Blood 137 mg/dL (70-110)
[2023-02-04 12:12] VITALS: BP 156/98; PULSE 98; RESP 16; TEMP 97.7
--- NOTE | 2023-02-04 12:32 | P.DS ---
Providers Date of admission: 02/01/23 00:10 Expected date of discharge: 02/04/23 Attending physician: Ivette Pichardo Consults: 02/01/23 00:03 Consult Physician Routine Consulting Provider: Ranjith Preciado Consult Reason/Comments: copd Do you want consulting provider notified?: Yes Primary care physician: Physician Nonstaff Hospital Course: Discharge diagnoses; * Bacterial pneumonia * Acute hypoxic respiratory failure on 3 L of oxygen , none at baseline * Acute exacerbation of asthma * Hypertension * history of depression Hospital course; 72-year-old lady with past medical history significant for asthma, hypertension, peripheral neuropathy presented to the emergency department with complains of cough and shortness of breath Patient says she was having symptoms for the last 3 or 4 days and was noted to have fever, cough and productive phlegmPatient doesn't wear oxygen at home and was noted to be on 2 L at the time of presentation but had to be increased to 4 L Workup initiated in ER including a CBC, basic metabolic panel and troponin which was negative Patient tested negative for influenza RSV and coronavirusChest x-ray showed patchy bibasilar infiltrate. Pulmonary medicine consulted 02/03. Patient seen and examined. Currently on 3 L of oxygen. States she feels better, still coughing up phlegm 02/04. Patient seen and examined. White count is 11.3, hemoglobin 11.6, sodium 135, potassium 4.2. Patient has been weaned off the oxygen, Patient walking resting pulse ox done, not requiring oxygen at this time. Being transitioned to oral Ceftin at discharge and tapering Dose of prednisone. Outpatient follow-up with pulmonary PHYSICAL EXAMINATION: GENERAL: The patient is alert and oriented x3, not in any acute distress. Well developed, well nourished. HEENT: Pupils are round and equally reacting to light. EOMI. No scleral icterus. No conjunctival pallor. Normocephalic, atraumatic. No pharyngeal erythema. No thyromegaly. CARDIOVASCULAR: S1 and S2 present. No murmurs, rubs, or gallops. PULMONARY: Chest is clear to auscultation, no wheezing or crackles. ABDOMEN: Soft, nontender, nondistended, normoactive bowel sounds. No palpable organomegaly. MUSCULOSKELETAL: No joint swelling or deformity. EXTREMITIES: No cyanosis, clubbing, or pedal edema. NEUROLOGICAL: Gross neurological examination did not reveal any focal deficits. SKIN: No rashes. Patient Condition at Discharge: Poor Plan - Discharge Summary Discharge Rx Participant: No New Discharge Prescriptions: New cefUROXime axetiL [Cefuroxime] 500 mg PO BID #4 tab predniSONE 10 mg PO DAILY #20 tab Continue Magnesium Oxide [Mag-Ox] 400 mg PO DAILY HYDROcodone/APAP 10-325MG [[place] 10-325] 1 tab PO TID Clopidogrel [Plavix] 75 mg PO DAILY Budesonide/Formoterol Fumarate [Symbicort 160-4.5 Mcg Inhaler] 2 puff INHALATION RT-BID Losartan Potassium [Cozaar] 50 mg PO DAILY rOPINIRole HCL [Requip] 0.5 mg PO HS Montelukast Sodium [Singulair] 10 mg PO DAILY Gabapentin [Neurontin] 300 mg PO TID DULoxetine HCL [Cymbalta] 60 mg PO DAILY Discharge Medication List Budesonide/Formoterol Fumarate [Symbicort 160-4.5 Mcg Inhaler] 2 puff INHALATION RT-BID 02/01/23 [History] Clopidogrel [Plavix] 75 mg PO DAILY 02/01/23 [History] DULoxetine HCL [Cymbalta] 60 mg PO DAILY 02/01/23 [History] Gabapentin [Neurontin] 300 mg PO TID 02/01/23 [History] HYDROcodone/APAP 10-325MG [[place] 10-325] 1 tab PO TID 02/01/23 [History] Losartan Potassium [Cozaar] 50 mg PO DAILY 02/01/23 [History] Magnesium Oxide [Mag-Ox] 400 mg PO DAILY 02/01/23 [History] Montelukast Sodium [Singulair] 10 mg PO DAILY 02/01/23 [History] rOPINIRole HCL [Requip] 0.5 mg PO HS 02/01/23 [History] cefUROXime axetiL [Cefuroxime] 500 mg PO BID #4 tab 02/04/23 [Rx] predniSONE 10 mg PO DAILY #20 tab 02/04/23 [Rx] Follow up Appointment(s)/Referral(s): Ranjith Preciado DO [Doctor of Osteopathic Medicine] - 02/16/23 1:15 pm Nonstaff,Physician [Primary Care Provider] - 1-2 days Discharge/Stand Alone Forms: Area PCPs
--- NOTE | 2023-02-04 12:40 | P.PN ---
Subjective Progress Note Date: 02/04/23 Principal diagnosis: Shortness of breath. Pulmonary consult dated 02/01/2023. 72-year-old female with history of chronic bronchial asthma, who typically uses Symbicort and Singulair at home, since the emergency room on January 31, complaining of increasing shortness of breath, and cough, for 3 or 4 days prior to admission. In addition, she had an elevated temperature, and apparently was told in the emergency room, she was being admitted for an asthma exacerbation complicated by pneumonia. The patient sees a family doctor, and Tonie Rae. The patient is a lifelong nonsmoker. The patient has a history of asthma, and also has a history of having only one kidney. Currently, the patient's on 2 L of oxygen. She did use BiPAP last night, with settings of 10/5 and 40%. She's currently on Rocephin and Zithromax, along with bronchodilators and corticosteroids. White count 8.2, hemoglobin 12.5, hematocrit 36.6, and platelet count was normal. Coagulation studies are normal. Sodium 137, potassium 3.4, chlorides 104, CO2 23, BUN 14, and creatinine 1.07. N-terminal proBNP was 1350. Troponin was negative. Studies for influenza, RSV, and coronavirus were all negative. We did order a pro-calcitonin level which is not currently back. Chest x-ray appears to show some patchy bibasilar infiltrates. Progress note dated 02/02/2023. 72-year-old female seen in consultation yesterday. Please see my note. She has a history of asthma, came to the hospital with complaints of increasing shortness of breath, for about 3 or 4 days prior to admission. She also had fever, and was found to have pneumonia on chest x-ray. The patient is currently on 3 L. She's not receiving any IV fluids. The patient's prednisone will be converted to Solu-Medrol. In addition, the patient's Symbicort will be changed to budesonide, and formoterol, at usual doses. The patient states that she's feeling only minimally better since admission. No new labs today. Sputum and blood sampling has been negative as far. Chest x-ray continues to show a similar pattern of pneumonia, with bibasilar infiltrates. Progress note dated 02/03/2023. 72-year-old female seen today in room 362. Currently, the patient's on 3 L of oxygen. She's not receiving any IV fluids. She appears to be doing better, and admits that she's feeling better. No new laboratory data to report. Chest x- ray from yesterday, was ready reviewed. The patient continues on the Pulmicort, Rocephin, formoterol, Mucinex, albuterol sulfate, and ipratropium bromide, and Solu-Medrol. Progress note dated 02/04/2023. 72-year-old female seen in room 362. The patient's currently on 3 L of oxygen. She is being evaluated by the nurse for possible home oxygen therapy on discharge. The patient's feeling much improved. Her breathing is much better. She was admitted with a diagnosis of pneumonia. Current laboratory data includes a white count 11.3, hemoglobin 11.6, hematocrit 36.9, and a normal platelet count. Sodium 135, potassium 4.2, chlorides 102, CO2 24, BUN 25, creatinine 0.71. Albumin is 3.4. Objective - Vital Signs Vital signs: Vital Signs Temp 97.7 F 02/04/23 11:55 Pulse 98 02/04/23 11:55 Resp 16 02/04/23 11:55 BP 156/98 02/04/23 11:55 Pulse Ox 93 L 02/04/23 11:55 FiO2 40 02/01/23 04:00 Intake & Output 02/03/23 02/04/23 02/04/23 18:59 06:59 18:59 Intake Total 360 5 Output Total 300 Balance 360 -300 5 Intake: IV 5 Invasive Line 3 5 Oral 360 Output: Urine 300 Stool 0 Other: Voiding Method External Catheter External Catheter External Catheter # Voids 2 # Bowel Movements 2 - Exam No acute distress, oriented 3. No conversational dyspnea or use of accessory muscles. Room air saturation is 93%. HEENT examination is grossly unremarkable. Neck supple. Full range of motion. No adenopathy thyromegaly or neck vein distention. Cardiovascular examination reveals regular rhythm rate. S1-S2 normal. No S3 or S4. No discernible murmur noted. Heart rate is 98 bpm. Lungs reveal minimal scattered rhonchi. Minimal wheezes. Breath sounds equal. No crackles. Breath sounds are much improved. Room air saturation is 93%. Abdomen soft bowel sounds are heard. No masses or tenderness. Extremities are intact. No cyanosis clubbing or edema. Skin is without rash or lesion. Neurologic examination is brief but nonfocal. - Labs CBC & Chem 7: 02/04/23 07:55 02/04/23 07:55 Labs: Abnormal Lab Results - Last 24 Hours (Table) 02/03/23 02/03/23 02/04/23 Range/Units 16:49 19:52 06:11 WBC (3.8-10.6) k/uL Neutrophils # (1.3-7.7) k/uL Sodium (137-145) mmol/L BUN (7-17) mg/dL Glucose (74-99) mg/dL POC Glucose (mg/dL) 226 H 178 H 125 H (70-110) mg/dL Total Protein (6.3-8.2) g/dL Albumin (3.5-5.0) g/dL 02/04/23 02/04/23 02/04/23 Range/Units 07:55 07:55 11:36 WBC 11.3 H (3.8-10.6) k/uL Neutrophils # 9.3 H (1.3-7.7) k/uL Sodium 135 L (137-145) mmol/L BUN 25 H (7-17) mg/dL Glucose 173 H (74-99) mg/dL POC Glucose (mg/dL) 137 H (70-110) mg/dL Total Protein 6.0 L (6.3-8.2) g/dL Albumin 3.4 L (3.5-5.0) g/dL Microbiology - Last 24 Hours (Table) 02/01/23 21:15 Gram Stain - Final Sputum Sputum Culture - Final Maddy albicans 02/01/23 00:58 Blood Culture - Preliminary Blood No Growth after 72 hours 02/01/23 00:58 Blood Culture - Preliminary Blood No Growth after 72 hours Assessment and Plan Assessment: Asthma exacerbation complicated by bibasilar pneumonia. History of hypertension. History of neuropathy. Lifelong nonsmoker. Plan: Plan dated 02/01/2023. The patient is currently on azithromycin and Rocephin. This is typical for community-acquired pneumonia. In addition, the patient was placed back on Symbicort 160/4.5, 2 puffs twice a day, and also is receiving albuterol sulfate and ipratropium bromide, 4 times a day and when necessary. The patient was also placed on prednisone 40 mg a day, Singulair 10 mg in the evening. We will continue to follow make recommendations along the way. We did order a pro- calcitonin level which is not currently back. Plan dated 02/02/2023. The patient remains on 3 L of oxygen. She's not receiving any IV fluids. In an attempt to improve her situation more quickly, the prednisone is discontinued, in favor of Solu-Medrol. In addition, Symbicort is discontinued in favor of budesonide 1 mg, mixed with formoterol 20 g, twice a day. Continue to follow make recommendations along the way. Labs, x-rays, medications are reviewed. Prognosis is certainly guarded. Plan dated 02/03/2023. The patient remains on 3 L. The patient is not receiving any IV fluids. Clinically, the patient appears to be improved. She states that she's feeling better. Hopeful discharge within the next 24-48 hours. We will continue to follow the patient and make additions along the way. Labs, x-rays, and medications are all reviewed. Prognosis is guarded Plan dated 02/04/2023. The patient is currently being evaluated for possible home oxygen. The patient will follow-up with her primary care physician. I be happy to see her in the office in follow-up, and provide her with excellent asthma care. In addition, she will need outpatient pulmonary function testing. Labs, x-rays, and medications are reviewed. We will continue to follow the patient should she not be discharged. Prognosis is guarded. Time with Patient: Less than 30
== END 2023-02-04 14:09 | disposition home or self-care (01) | DRG 193 ==
LOC: EC 21:53 → 3SCARD 02-01 00:10
PROVIDERS: ADMIT Internal Medicine; ATTEND Internal Medicine
PROC: 5A09357 Assistance with Respiratory Ventilation, Less than 24 Consecutive Hours, Continuous Positive Airway Pressure (ICD-10-PCS; principal; 2023-01-31)
DX: J15.9 Unspecified bacterial pneumonia (principal); J96.01 Acute respiratory failure with hypoxia; J44.0 Chronic obstructive pulmonary disease with (acute) lower respiratory infection; J44.1 Chronic obstructive pulmonary disease with (acute) exacerbation; J45.901 Unspecified asthma with (acute) exacerbation; Z20.822 Contact with and (suspected) exposure to COVID-19; F32.A Depression, unspecified; I10 Essential (primary) hypertension; M06.9 Rheumatoid arthritis, unspecified; Z86.14 Personal history of Methicillin resistant Staphylococcus aureus infection; Z79.02 Long term (current) use of antithrombotics/antiplatelets; Z79.51 Long term (current) use of inhaled steroids; Z79.899 Other long term (current) drug therapy; Z88.2 Allergy status to sulfonamides; Z88.6 Allergy status to analgesic agent; Z91.041 Radiographic dye allergy status; Z91.013 Allergy to seafood
CPT/HCPCS: 36415; 71045; 71046; 80048; 80053; 83036; 83605; 83735; 83880; 84145; 84484; 85025; 85027; 85610; 85730; 86140; 87040; 87070; 87205; 87449; 87636; 93005; 94640; 94660; 94760; 96374; 99291

== ENCOUNTER → 2023-02-23 | Outpatient (CLI) | payer MEDICARE, OTHER ==
--- NOTE | 2023-02-23 18:44 | BD ---
EXAMINATION TYPE: Axial Bone Density DATE OF EXAM: 02/23/2023 CLINICAL HISTORY: 72 years old Female. ICD-10 CODE: Z13.820 SCREENI FOR OSTEOPOROSIS Height: 4 ft 8 1/2 in Weight: 157 FRAX RISK QUESTIONS: Alcohol (3 or more units per day): no Family History (Parent hip fracture): no Glucocorticoids (More than 3mos): no (Ex: prednisone, prednisolone, methylprednisolone, dexamethasone, and hydrocortisone). History of Fracture in Adulthood: no Secondary Osteoporosis: 1. Type 1 Diabetes: no 2. Hyperthyroidism: no 3. Menopause before 45: no 4. Malnutrition: no 5. Chronic liver disease: no Rheumatoid Arthritis: yes Current Tobacco Use: no RISK FACTORS HISTORY OF: Surgery to Spine/Hip(right/left)/Wrist (right/left): no Family History of Osteoporosis: yes Active: yes Diet low in dairy products/other sources of calcium: no Postmenopausal woman: yes Take estrogen and/or progesterone medications: no Lost more than 2 inches in height since high school: yes Frequent falls: yes Poor Health: fair Hyperparathyroidism: no Adrenal Insufficiency: no MEDICATIONS: Additional Medications: NORCO, gabapentin, singular, Plavix, blood pressure meds, restless leg synd marky , Additional History: copd EXAM MEASUREMENTS: Bone mineral densitometry was performed using the [employer]. Bone mineral density as measured about the Lumbar spine is: ----- L1-L4(G/cm2): 0.817 T Score Values are as follows: ----- L1: -2.2 ----- L2: -3.1 ----- L3: -4.0 ----- L4: -2.9 ----- L1-L4: -3.0 Z Score Values are as follows: ----- L1: -0.7 ----- L2: -1.6 ----- L3: -2.5 ----- L4: -1.4 ----- L1-L4: -1.5 baseline Bone mineral density about the R hip (g/cm2): 0.617 Bone mineral density about the L hip (g/cm2): 0.630 T Score values are as follows: -----R Neck: -2.3 -----L Neck: -2.2 -----R Total: -0.2 -----L Total: -0.1 Z Score values are as follows: -----R Neck: -0.8 -----L Neck: -0.6 -----R Total: 0.7 -----L Total: 0.8 baseline FRAX%s: The graph provided illustrates a 13.6 % chance for a major osteoporotic fx and a 2.7 % chance for the hips probability for fx in 10 years time. IMPRESSION: Osteoporosis (T Score less than -2.5). There is increased fracture risk and therapy is usually indicated based on age. Re-Screen 1-2 years. NOTE: T-SCORE=SD OF THE YOUNG ADULT MEAN.
== END | disposition home or self-care (01) ==
LOC: RADBDWWP 13:47
PROVIDERS: ATTEND Family Medicine
DX: Z13.820 Encounter for screening for osteoporosis (principal); M85.89 Other specified disorders of bone density and structure, multiple sites; Z78.0 Asymptomatic menopausal state
CPT/HCPCS: 77080

== ENCOUNTER → 2023-03-03 | Outpatient (CLI) | payer MEDICARE, OTHER ==
--- NOTE | 2023-03-03 10:40 | CT ---
EXAMINATION TYPE: CT chest wo con DATE OF EXAM: 03/03/2023 COMPARISON: Chest x-ray February 16, 2023 HISTORY: COPD. Asthma. CT DLP: 879.7 mGycm. Automated Exposure Control for Dose Reduction was Utilized. TECHNIQUE: CT scan of the thorax is performed without IV contrast. High resolution protocol with 1 m m sequences obtained in 10 mm intervals in supine and prone technique using full inspiration and expi ration. FINDINGS: LUNGS: Some faint areas of groundglass opacity are seen centrally in the right lung there are some ar eas of mild peribronchial wall thickening. There is mild bibasilar linear scarring and/or atelectasi s. No significant peripheral reticulation or fibrosis is seen. No pleural effusion or pneumothorax. N o honeycombing or bronchiectasis. No suspicious masses. MEDIASTINUM: Lack of IV contrast and technique are noted to limit evaluation for mediastinal and leon cially hilar adenopathy. There are no definitive greater than 1 cm mediastinal lymph nodes. No card iomegaly or pericardial effusion is seen. Coronary artery calcification is present. There is calcific ation at level of the mitral valve. There is moderate-sized hiatal hernia. OTHER: No additional significant abnormality is seen. IMPRESSION: Some central groundglass opacities and central mild peribronchial wall thickening favor p roduct of bronchitis and/or asthma exacerbation/air trapping. Correlate clinically. No significant pe ripheral reticulation or fibrotic change bilaterally.
== END | disposition home or self-care (01) ==
LOC: RADCTMAIN 09:10
PROVIDERS: ATTEND Internal Medicine Critical Care Medicine
DX: J44.9 Chronic obstructive pulmonary disease, unspecified (principal); J98.09 Other diseases of bronchus, not elsewhere classified; R91.8 Other nonspecific abnormal finding of lung field
CPT/HCPCS: 71250